=== PATIENT | male | born 1990 | race Caucasian/White ===

== ENCOUNTER 2016-05-19 20:35 | Emergency (ER) | payer SELFPAY ==
[2016-05-20 00:47] VITALS: BP 138/72
== END 2016-05-19 21:29 ==
LOC: ED 20:35
DX: M79.645 Pain in left finger(s) (principal)
CPT/HCPCS: 99281

== ENCOUNTER 2016-06-09 09:56 | Emergency (ER) | payer SELFPAY ==
--- NOTE | 2016-06-09 11:15 | Diagnostic Imaging Report ---
[facility] [id number] [facility].[address] [id number] Report Submission Date: Jun 09, 2016 11:07:08 AM CDT Patient Study Name: DODIE DODSON Date: Jun 09, 2016 10:53:08 AM CDT Modality Type: CR Gender: M Description: CHEST : 89 Institution: [facility] Physician: FRANCISCA ROSALES - ER Chest, 2 view History: COUGH AND CHEST PAIN AND TIGHTNESS X ONE WEEK Findings: The heart size is normal. The lungs are clear. There is no pleural effusion or pneumothorax identified. The osseous structures are normal. Impression: 1. No acute pulmonary disease. Electronically signed on Jun 09, 2016 11:07:08 AM CDT by: Mukesh BONE
[2016-06-09 12:05] VITALS: BP 101/62
--- NOTE | 2016-06-09 12:07 | ED Physician Documentation ---
General Adult - HPI Stated Complaint: cough, congestion, RAWLS, constipation Chief Complaint: General Adult Additional Information: flu like sy w/cough nasal drainage no fever occ chills. states drank 15 protein shakes in one day and other indication of imbalanced dietary practices. has not had flu or pneumovac Onset: days ago (2) Timing: still present, better (girl friend insisted i come to the ed) Severity: mild, moderate - ROS CONST: no problems EYES/ENT: none, nasal drainage, nasal congestion. denies: sore throat CVS/RESP: other (occ slight chest heaviness) GI/: none MS/SKIN/LYMPH: none NEURO/PSYCH: dizziness (slight) - PAST HX Past History: none Surgeries/Procedures: none Allergies/Adverse Reactions: Allergies Allergy/AdvReac Type Severity Reaction Status Date / Time No Known Allergies Allergy Verified 05/20/16 00:36 Home Medications: Ambulatory Orders Medication Instructions Recorded NK [NK] 10/25/14 - SOCIAL HX Smoking History: less than 1 pack/day Alcohol Use: none - FAMILY HX Family History: No - VITAL SIGNS Vital Signs: Vital Signs Temp Pulse Resp BP Pulse Ox 98.2 F 90 18 117/59 97 06/09/16 10:00 06/09/16 10:00 06/09/16 10:00 06/09/16 10:00 06/09/16 10:00 - REVIEWED ASSESSMENTS Nursing Assessment Reviewed: Yes Vitals Reviewed: Yes ED Results Lab/Radiology - Orders Orders: ED Orders Category Date Time Status CHEST 2 VIEW [CHEST P.A.&LAT 2 VIEWS] [RAD] Stat Exams 06/09/16 10:27 Completed INFLUENZA A&B Stat Lab 06/09/16 10:12 Ordered General Adult Physical Exam - PHYSICAL EXAM GENERAL APPEARANCE: mild distress EENT: eye inspection normal, ENT inspection normal (sinuses percuss w/o pain) NECK: normal inspection, thyroid normal, supple RESPIRATORY: no resp distress, chest non-tender, breath sounds normal CVS: reg rate & rhythm, heart sounds normal ABDOMEN: soft, non-tender SKIN: warm/dry, normal color. No: cyanosis, diaphoresis, jaundice EXTREMITIES: non-tender, normal range of motion, no evidence of injury NEURO: oriented X3, CN's nml as tested, motor nml, sensation nml, mood/affect nml Discharge Clincal Impression: non a/b flu like symptoms Home Medications: Ambulatory Orders NK [NK] 10/25/14 Condition: Good Disposition: 01 HOME, SELF-CARE Decision to Admit: NO Decision Time: 12:12
== END 2016-06-09 12:05 | disposition home or self-care (01) ==
LOC: ED 09:56
DX: J06.9 Acute upper respiratory infection, unspecified (principal); F17.210 Nicotine dependence, cigarettes, uncomplicated
CPT/HCPCS: 71020; 87400; 99283